=== PATIENT | male | born 1985 | race Two or more races ===

== ENCOUNTER 2024-11-20 18:39 | Emergency (ER) | payer SELFPAY ==
[~2024-11-20] VITALS: Ht 165.1 cm; Wt 68.2 kg
--- NOTE | 2024-11-20 19:15 | ED.PDOC ---
Altered Mental Status HPI Comments 39 year old male presents to the ED via EMS with a chief complaint of ALOC onset today. Per EMS, patient was found outside of restaurant, difficult to arouse woke up prior to ED arrival. EMS tried to do an IV, patient refused. Upon ED arrival, patient was altered, was able to state his name, refused EKG. With int erpreter, patient was able to state he was drinking alcohol today, knows he is at a Hospital in [place], was not answering other questions. EMS states patient's VSS, BS was 150. Patient is a poor historian. Time Seen by MD: 18:40 Reviewed Notes: Medications, Allergies Allergies: Coded Allergies: NO KNOWN ALLERGIES (Unverified , 11/20/24) Information Source: Patient, Emergency Med Personnel Mode of Arrival: EMS Severity: Moderate Timing: Hours Duration: Since onset Prehospital treatment: None Quality: Confusion Vital Signs Vital Signs Date Time Temp Pulse Resp B/P (MAP) Pulse Ox O2 Delivery O2 Flow Rate FiO2 11/20/24 22:16 99.0 112 18 126/82 (97) 99 99.0 Physical Exam General: Awake, alert and oriented. No acute distress. Skin: Skin in warm, dry. Small abrasion under chin. Appropriate color for ethnicity. HEENT: The head is normocephalic and atraumatic. Conjunctivae are clear without exudates or hemorrhage. PERRLA Eyelids are normal in appearance without swelling or lesions. Oral mucosa is pink and moist. No epistaxis Neck: The neck is supple with normal range of motion. No JVD. Cardiac: Heart rate and rhythm are normal. No murmurs, gallops, or rubs are auscultated. Respiratory: No signs of respiratory distress. Lung sounds are clear in all lobes bilaterally without rales, rhonchi, or wheezes. Abdominal: Abdomen is soft, non-tender without distention. Bowel sounds are present and normoactive in all four quadrants. Extremities: Upper and lower extremities are atraumatic in appearance without deformity or edema. Neurological: The patient is awake, alert and oriented to person, place, and time with normal speech. Speech is clear. There is no facial asymmetry. Psychiatric: Appropriate mood and affect. Good judgement and insight. Review of Systems: REVIEW OF SYSTEMS: No fever, no chills, HEENT: No neck pain, no blurred vision. Positive nosebleed Cardiac: No chest pain. No palpitations. Lungs: No shortness of breath, GI: No abdominal pain, no vomiting Musculoskeletal: No joint pain , no back pain Skin: Positive wound under chin Neuro: Positive headache, Past Medical History PAST MEDICAL HISTORY: Unknown Surgical History: Unknown Social History Smoker: Unknown Alcohol: Heavy Drugs: Unknown Lives In: Homeless Was a procedure done? Was a procedure done?: No Differential Diagnosis (ALOC) Differential Diagnosis: Dehydration, Hypoglycemia, Encephalopathy, Sepsis, Closed Head Injury, Mass Lesion, Drug Overdose, ETOH Intoxication, Other X-Ray, Labs, Meds, VS Vital Signs Date Time Temp Pulse Resp B/P (MAP) Pulse Ox O2 Delivery O2 Flow Rate FiO2 11/20/24 22:16 99.0 112 18 126/82 (97) 99 99.0 11/20/24 19:49 115 12 97 Current Medications Medications (Trade) Dose Ordered Sig/Latoya Route Start Time Stop Time Status Last Admin Acetaminophen (Tylenol Tablet) 650 mg ONCE ONCE PO 11/20/24 22:45 11/20/24 22:46 DC 11/20/24 22:37 Time of 1ST Reevaluation: 19:10 Reevaluation 1ST: Unchanged Patient Education/Counseling: Need For Follow Up Family Education/Counseling: No Family Present Departure 1 Departure Time of Disposition: 01:43 Impression: Primary Impression: Alcohol intoxication Additional Impression: Altered mental status Disposition: LEFT AGAINST MEDICAL ADVICE Condition: Stable Comments 39-year-old male presented to the emergency department via EMS with altered mental status. Patient appeared to be intoxicated with alcohol. Patient was interviewed using the Jesus tip cementer. During the ED observation patient's mental status improved. Patient declined all diagnostic studies. He was able to ambulate around the emergency department without difficulty. He is tolerating p.o.. Using the Jesus tip cementer patient found to be A&O x4. Despite our efforts, patient has decided to leave against medical advice. The patient has a normal mental status and full decisional capacity. Patient has been informed using supervisor paint roller covers of the benefits of staying such as further diagnosis and treatment of possible serious etiology of the symptoms, and the risks of leaving such as , chronic pain, permanent disability or other serious adverse events which might be attributed to leaving. The patient displays clear understanding of these benefits and risks and chooses to leave. The patient is been informed also that they may return here at any time if they change their mind or need to further concerns or questions has been referred to their local medical physician for follow up JANIE. I reviewed the following notes from the pt's past medical encounters: N/A Additional information was gathered from interviewing the following independent historians: EMS personnel Critical Care Note Critical Care Time?: No Stability Stability form required: No I personally scribed for TRACY CALLAWAY MD ([email or web address]) on 11/20/24 at 19:15. Electronically submitted by Rosanne Garza ([email or web address]). I personally scribed for TRACY CALLAWAY MD ([email or web address]) on 11/20/24 at 19:56. Electronically submitted by Rosanne Garza ([email or web address]). TRACY CALLAWAY MD Nov 20, 2024 19:15
[2024-11-20 22:16] VITALS: BP 126/82; PULSE 112; RESP 18; TEMP 99; O2SAT 99
[2024-11-20] MEDS: ACETAMINOPHEN 325 MG TAB PO ONE (22:37)
== END 2024-11-21 01:50 | disposition left against medical advice (07) ==
LOC: EDBD 18:39 → ER 18:39
DX: F10.129 Alcohol abuse with intoxication, unspecified (principal); Z59.00 Homelessness unspecified; Y90.9 Presence of alcohol in blood, level not specified